=== PATIENT | female | born 1975 | race Two or more races ===

== ENCOUNTER 2017-04-02 20:48 | Emergency (ER) | payer MEDICAID ==
[~2017-04-02] VITALS: Ht 170.2 cm; Wt 113.4 kg
[~2017-04-02 20:48] MED LIST: NKM
[2017-04-02] MEDS ORDERED: BACTROBAN CR1 APPLIC TOPIC (21:57)
[2017-04-02] MEDS ORDERED: BACTRIM DS TAB1 EAC1 ORAL (21:57)
--- NOTE | 2017-04-02 21:57 | Emergency Room Report ---
History of Present Illness General Chief Complaint: Skin Rash/Abscess Source: Patient Present Illness HPI This is a 41-year-old female with no severe past medical history. She presents with what she thought maybe bedbugs. She was in the hospital for hemorrhoidal surgery a 72. She came home she noticed a rash to her stomach. She thought maybe bedbugs. Since then his been spreading. Is itchy. No fever chills but no nausea no vomiting. No other complaint. She was on an antibiotics after the surgery but she doesn't know the name of it. It was twice a day. Allergies: Coded Allergies: No Known Allergies (Unverified , 10/26/16) Patient History Past Medical History: see triage record, old chart reviewed Past Surgical History: other Pertinent Family History: none Social History: Denies: smoking Now: No Immunizations: other Reviewed Nursing Documentation: PMH: Agreed, PSxH: Agreed Nursing Documentation-PM Hx Gastrointestinal Problems: Yes - HEMORRHOIDECTOMY,MARCH 08, Review of Systems Eye: Denies: blurred vision, eye pain ENT: Denies: ear pain, nose congestion, throat swelling Respiratory: Denies: cough, shortness of breath Cardiovascular: Denies: chest pain, palpitations Gastrointestinal: Denies: abdominal pain, diarrhea, nausea, vomiting Musculoskeletal: Denies: back pain, joint pain Skin: Reports: rash Neurological: Denies: headache, numbness Endocrine: Denies: increased thirst, increased urine Hematologic/Lymphatic: Denies: easy bruising All Other Systems: negative except mentioned in HPI Physical Exam Vital Signs Date Time Temp Pulse Resp B/P Pulse Ox O2 Delivery O2 Flow Rate FiO2 04/02/17 21:04 97.5 116 18 121/82 96 Room Air vitals with tachycardia Sp02 EP Interpretation: reviewed, normal General Appearance: well appearing, no apparent distress, alert Head: normocephalic, atraumatic Eyes: bilateral eye EOMI, bilateral eye PERRL ENT: hearing grossly normal, normal pharynx Neck: full range of motion, supple, no meningismus Respiratory: chest non-tender, lungs clear, normal breath sounds Cardiovascular #1: regular rate, rhythm, no murmur Gastrointestinal: normal bowel sounds, non tender, no mass, no organomegaly, no bruit, non-distended Musculoskeletal: back normal, gait/station normal, normal range of motion Neurologic: alert, oriented x3 Psychiatric: mood/affect normal Skin: warm/dry, other - scattered 2-3mm erythematous rash on body and extremities Medical Decision Making Diagnostic Impression: Primary Impression: Cellulitis Qualified Codes: L03.90 - Cellulitis, unspecified ER Course Patient presents with a rash. Most likely cellulitis. No evidence of any abscess. Doubt bedbugs since it has been a month. Last Vital Signs Date Time Temp Pulse Resp B/P Pulse Ox O2 Delivery O2 Flow Rate FiO2 04/02/17 21:04 97.5 116 18 121/82 96 Room Air Status: improved Disposition: HOME, SELF-CARE Condition: Stable Scripts Mupirocin Calcium (Bactroban) 15 Gm Cream..g. 1 APPLIC TOPIC THREE TIMES A DAY, #30 GM Prov: CLAY CARTWRIGHT M.D. 04/02/17 Trimethoprim/Sulfamethoxazole 160/800* (BACTRIM DS TABLET*) 1 Each Tablet 1 TAB ORAL Q12H, #14 TAB 0 Refills Prov: CLAY CARTWRIGHT M.D. 04/02/17 Additional Instructions: Follow up with your doctor in 7 days. Return if worse. CLAY CARTWRIGHT M.D. April 02, 2017 21:57
[2017-04-02] MEDS ORDERED: Bactrim DS (160mg/800mg) tab ORAL ONE (22:00)
[2017-04-02 22:16] VITALS: BP 147/85
== END 2017-04-02 22:16 | disposition home or self-care (01) ==
LOC: EMR 22:05
DX: L03.90 Cellulitis, unspecified (principal)
CPT/HCPCS: 99284

== ENCOUNTER 2019-07-24 20:42 | Emergency (ER) | payer MEDICAID ==
[~2019-07-24] VITALS: Ht 170.2 cm; Wt 113.4 kg
[~2019-07-24 20:42] MED LIST changes: +BACTRIM DS TAB1 EAC1 ORAL; +BACTROBAN CR1 APPLIC TOPIC
--- NOTE | 2019-07-24 21:02 | NUR ---
ED Nurse Note: PT AMBULATED TO ED C/O PELVIC PAIN X THIS MORNING INCREASES WITH COUGING AND BURNING URINATION X 4 HOURS. AO4. NAD. VSS. URINE COLLECTED; SENT DOWN TO LAB.
[2019-07-24 21:03] VITALS: BP 116/69
--- NOTE | 2019-07-24 21:15 | Emergency Room Report ---
History of Present Illness General Chief Complaint: Female Urogenital Problems Source: Patient Present Illness HPI This is a 44-year-old female with no past medical history. She presents with chief complaint of pelvic pain with urinary urgency, frequency and one episode of incontinence. Onset tonight. Also has persistent vaginal discharge and yeast infection. Been treated with MetroGel and Diflucan without any relief. No culture done. She said Pap smear 6 months ago was negative. Denies any other complaint. Allergies: Coded Allergies: No Known Allergies (Unverified , 10/26/16) Patient History Past Medical History: see triage record, old chart reviewed Past Surgical History: none Pertinent Family History: none Social History: Denies: smoking Last Menstrual Period: 06/23/19 Now: No Immunizations: other Reviewed Nursing Documentation: PMH: Agreed; PSxH: Agreed Nursing Documentation-PMH Past Medical History: No History, Except For Hx Gastrointestinal Problems: Yes - HEMORRHOIDECTOMY,MARCH 08, Review of Systems Eye: Denies: eye pain, blurred vision ENT: Denies: ear pain, nose congestion, throat swelling Respiratory: Denies: cough, shortness of breath Cardiovascular: Denies: chest pain, palpitations Gastrointestinal: Denies: abdominal pain, diarrhea, nausea, vomiting Genitourinary: Reports: discharge, dysuria, frequency, urgency Musculoskeletal: Denies: back pain, joint pain Skin: Denies: rash Neurological: Denies: headache, numbness Endocrine: Denies: increased thirst, increased urine Hematologic/Lymphatic: Denies: easy bruising All Other Systems: negative except mentioned in HPI Physical Exam Vital Signs Date Time Temp Pulse Resp B/P (MAP) Pulse Ox O2 Delivery O2 Flow Rate FiO2 07/24/19 20:45 98.4 92 16 116/69 (85) 96 Room Air Vitals normal Sp02 EP Interpretation: reviewed, normal General Appearance: well appearing, no apparent distress, alert Head: normocephalic, atraumatic Eyes: bilateral eye PERRL, bilateral eye EOMI ENT: hearing grossly normal, normal pharynx Neck: full range of motion, supple, no meningismus Respiratory: chest non-tender, lungs clear, normal breath sounds Cardiovascular #1: regular rate, rhythm, no murmur Gastrointestinal: normal bowel sounds, non tender, no mass, no organomegaly, no bruit, non-distended Musculoskeletal: back normal, gait/station normal, normal range of motion Psychiatric: mood/affect normal Medical Decision Making Diagnostic Impression: Primary Impression: UTI (urinary tract infection) Qualified Codes: N30.00 - Acute cystitis without hematuria Additional Impression: Bacterial vaginosis ER Course Patient symptoms consistent with UTI especially with frequency and urgency. She also has clue cells so we will treat for bacterial vaginosis also. She said that after antibiotics usually to get a yeast infection. We will give her Diflucan. No evidence of ectopic. No evidence of acute abdomen. No evidence of cervicitis. Will discharge home. Last Vital Signs Date Time Temp Pulse Resp B/P (MAP) Pulse Ox O2 Delivery O2 Flow Rate FiO2 07/24/19 21:03 98.4 92 16 116/69 96 Room Air Status: improved Disposition: HOME, SELF-CARE Condition: Stable Scripts Fluconazole (FLUCONAZOLE) 100 Mg Tablet 100 MG ORAL DAILY, #1 TAB 0 Refills Prov: Mikey Mascorro MD 07/24/19 Cephalexin* (KEFLEX*) 500 Mg Capsule 500 MG ORAL TID, #21 CAP Prov: Mikey Mascorro MD 07/24/19 Metronidazole* (FLAGYL*) 500 Mg Tablet 500 MG ORAL BID, #14 TAB Prov: Mikey Mascorro MD 07/24/19 Patient Instructions: Urinary Tract Infection Additional Instructions: Follow-up with your doctor in 7 days. Return if symptoms worsen. Mikey Mascorro MD Jul 24, 2019 21:15
[2019-07-24 21:27] LABS: APPEARANCE,URINE CLEAR; BILIRUBIN, URINE NEGATIVE (NEGATIVE); GLUCOSE, URINE (UA) NEGATIVE (NEGATIVE); KETONES,URINE 1+ (NEGATIVE); LEUKOCYTE ESTERASE ,URINE 2+ (NEGATIVE); NITRITE,URINE NEGATIVE (NEGATIVE); PH,URINE 5 (4.5-8.0); PROTEIN,URINE NEGATIVE (NEGATIVE); UROBILINOGEN,URINE 1 MG/DL (0.0-1.0)
--- NOTE | 2019-07-24 21:30 | NUR ---
ED Nurse Note: ASSIST ERMD WITH PELVIC EXAM. WET MOUND COLLECTED; SENT DOWN TO LAB.
[2019-07-24 21:33] LABS: COLOR,URINE YELLOW
[2019-07-24] MEDS ORDERED: METRONIDAZOLE500 MG ORAL (21:57)
[2019-07-24] MEDS ORDERED: FLUCONAZOLE100 MG ORAL (21:57)
[2019-07-24] MEDS ORDERED: CEPHALEXIN500 MG ORAL (21:57)
[2019-07-24 22:00] VITALS: BP 116/69
--- NOTE | 2019-07-24 22:00 | NUR ---
ER DISCHARGE NOTE: Patient is cleared to be discharged per ERMD, pt is aox4, on room air, with stable vital signs. pt was given dc and prescription instructions, pt was able to verbalize understanding, pt id band removed. pt is able to ambulate with steady gait. pt took all belongings.
== END 2019-07-24 22:00 | disposition home or self-care (01) ==
LOC: EMR 21:10
DX: N30.00 Acute cystitis without hematuria (principal); N76.0 Acute vaginitis
CPT/HCPCS: 81003; 81025; 87210; 99283

== ENCOUNTER 2019-11-12 01:13 | Emergency (ER) | payer MEDICAID ==
[~2019-11-12] VITALS: Ht 170.2 cm; Wt 113.4 kg
[~2019-11-12 01:13] MED LIST changes: +CEPHALEXIN500 MG ORAL; +FLUCONAZOLE100 MG ORAL; +METRONIDAZOLE500 MG ORAL
[2019-11-12 01:15] VITALS: BP 132/82
--- NOTE | 2019-11-12 01:15 | NUR ---
ED Nurse Note: Patient walked into ER from home d/t c/o productive cough lasting 2 months. Patient reported phlegm is green colored. Patient c/o chest pain from coughing 8/10. Patient aao x 4 and ambulatory. Patient placed in gown and cardiac monitor technician. No acute distress noted.
--- NOTE | 2019-11-12 01:40 | NUR ---
ED Nurse Note: ERMD at bedside
[2019-11-12] MEDS ORDERED: PROMETHAZINE-C118 M1 ORAL (01:56)
[2019-11-12] MEDS ORDERED: AMOXICILLIN500 MG ORAL (01:56)
--- NOTE | 2019-11-12 02:05 | NUR ---
ED Nurse Note: Discussed discharge instructions and prescriptions with patient, patient became anxious and stated she wanted a chest x-ray to ensure she does not have pneumonia. Explained to patient her treatment per ERMD is treating possible pneumonia and chest x-ray deemed unnecessary d/t radiation exposure. ERMD aware.
--- NOTE | 2019-11-12 02:34 | NUR ---
ED Nurse Note: Pt with it support technician.
[2019-11-12 02:49] VITALS: BP 122/75
--- NOTE | 2019-11-12 02:49 | NUR ---
ED Nurse Note: Patient cleared for discharge per ERMD. Patient given discharge instructions and prescriptions, verbalized understanding. Medical devices and ID band removed. Patient aao x 4 and ambulatory upon discharge. Patient stable upon discharge.
--- NOTE | 2019-11-12 03:23 | Diagnostic Imaging Report ---
EXAM: XR Chest, 1 View CLINICAL HISTORY: COUGH TECHNIQUE: Frontal view of the chest. COMPARISON: No relevant prior studies available. FINDINGS: Lungs: Slightly increased opacity in the right lower lobe. Pleural space: No acute findings Heart: No cardiomegaly. Bones/joints: No acute findings. IMPRESSION: Possible aspiration versus discoid atelectasis in the right lower lobe.
--- NOTE | 2019-11-12 03:31 | Emergency Room Report ---
History of Present Illness General Chief Complaint: Upper Respiratory Illness Source: Patient Present Illness HPI 44-year-old female presents ED for evaluation. Complaining of cough and generalized body pain for the last 2 months. States her symptoms do not resolve with [id number] medications. Cough is productive with greenish phlegm. Pain is dull, 6 out of 10, nonradiating. Denies fevers or chills. States that her mother has been admitted here for pneumonia. Denies sick contacts or no other aggravating relieving factors. Denies any other associated symptoms Allergies: Coded Allergies: No Known Allergies (Unverified , 10/26/16) Patient History Past Medical History: none Past Surgical History: other - hemorrhoidectomy Pertinent Family History: none Social History: Denies: smoking, alcohol use, drug use Last Menstrual Period: 10/09/19 Now: No Immunizations: UTD Reviewed Nursing Documentation: PMH: Agreed; PSxH: Agreed Nursing Documentation-PMH Past Medical History: No History, Except For Hx Gastrointestinal Problems: Yes - HEMORRHOIDECTOMY,MARCH 08, Review of Systems All Other Systems: negative except mentioned in HPI Physical Exam Vital Signs Date Time Temp Pulse Resp B/P (MAP) Pulse Ox O2 Delivery O2 Flow Rate FiO2 11/12/19 01:15 98.9 78 22 132/82 97 Room Air Sp02 EP Interpretation: reviewed, normal General Appearance: no apparent distress, alert, GCS 15, non-toxic Head: normocephalic, atraumatic Eyes: bilateral eye normal inspection, bilateral eye PERRL ENT: hearing grossly normal, normal pharynx, no angioedema, normal voice Neck: full range of motion, supple/symm/no masses Respiratory: chest non-tender, lungs clear, normal breath sounds, speaking full sentences Cardiovascular #1: regular rate, rhythm, no edema Cardiovascular #2: 2+ carotid (R), 2+ carotid (L), 2+ radial (R), 2+ radial (L) , 2+ dorsalis pedis (R), 2+ dorsalis pedis (L) Gastrointestinal: normal bowel sounds, non tender, soft, non-distended, no guarding, no rebound Rectal: deferred Genitourinary: normal inspection, no CVA tenderness Musculoskeletal: back normal, normal range of motion, gait/station normal, non- tender Neurologic: alert, motor strength/tone normal, oriented x3, sensory intact, responsive, speech normal Psychiatric: judgement/insight normal, memory normal, mood/affect normal, no suicidal/homicidal ideation Reflexes: 3+ bicep (R), 3+ bicep (L), 3+ tricep (R), 3+ tricep (L), 3+ knee (R) , 3+ knee (L) Lymphatic: no adenopathy Medical Decision Making Diagnostic Impression: Primary Impression: Atypical pneumonia ER Course Hospital Course 44 yo F presents to ED c/o cough x 2 months. Differential diagnoses include: URI, pharyngitis, otitis media, asthma Clinical course Patient placed on stretcher. After initial history, physical exam reveals a female in no acute distress. Bilateral TM unremarkable. No pharyngeal erythema. No tonsillar exudates. No lymphadenopathy. lungs clear. abdomen soft. CXR - ? increased haziness RLL Discussed findings with patient. Given persistent symptoms we will treat as atypical pneumonia and prescribed antibiotics and cough medication. Safe for discharge for close outpatient follow-up. I will provide referrals Diagnosis - atypical pneumonia Stable and discharged home with Rx amoxicillin, promethazine/DM. Instructed to followup with PMD. Return to ED if symptoms recur or worsen Chest X-Ray Diagnostic Results Chest X-Ray Diagnostic Results : Chest X-Ray Ordered: Yes # of Views/Limited/Complete: 1 View Indication: Shortness of Breath EP Interpretation: Yes Interpretation: no effusion, no pneumothorax, other - RLL consolidation Impression: Other - pneumonia Electronically Signed by: Electronically signed by Al Patel MD Last Vital Signs Date Time Temp Pulse Resp B/P (MAP) Pulse Ox O2 Delivery O2 Flow Rate FiO2 11/12/19 02:49 97.8 88 19 122/75 97 Room Air Status: improved Disposition: HOME, SELF-CARE Condition: Improved Scripts Amoxicillin* (AMOXIL*) 500 Mg Capsule 500 MG ORAL THREE TIMES A DAY, #21 CAP Prov: Al Patel MD 11/12/19 Codeine/Promethazine Hcl* (PROMETHAZINE-CODEINE SYRUP*) 118 Ml Syrup 5 ML ORAL Q6H PRN for For Cough, #118 ML 0 Refills Prov: Al Patel MD 11/12/19 Referrals: [facility],REFERRING (PCP) [facility] Patient Instructions: Community-Acquired Pneumonia, Adult, [id number] Al Patel MD Nov 12, 2019 03:31
== END 2019-11-12 02:49 | disposition home or self-care (01) ==
LOC: EMR 01:52
DX: J18.9 Pneumonia, unspecified organism (principal)
CPT/HCPCS: 71045; Z7502; 99283